=== PATIENT | female | born 1995 | race Caucasian/White ===

== ENCOUNTER → 2024-01-19 17:32 | Outpatient (CLI) | payer OTHER, SELFPAY | PROVIDERS: Referring Provider Internal Medicine; Visit Provider Internal Medicine | DX: Z23 Encounter for immunization (principal) | CPT/HCPCS: 90471; 90656 ==

== ENCOUNTER → 2024-09-15 16:46 | Outpatient (CLI) | payer OTHER, SELFPAY ==
[2024-09-15 17:43] LABS: Add Manual Diff / Slide Review NO; Basophils Absolute Auto 0 /uL (0-100); Basophils Percent Auto 0.4 % (0-2); Eosinophils Absolute Auto 200 /uL (0-450); Eosinophils Percent Auto 2.2 % (2-4); Hematocrit 40.1 % (36-46); Hemoglobin 13.4 g/dL (12.0-16.0); Lymphocytes Absolute Auto 2400 /uL (1100-4500); Lymphocytes Percent Auto 33.8 % (25-40); Mean Corpuscular HGB Conc 33.4 % (30-36); Mean Corpuscular Hemoglobin 29.4 PG (26-34); Mean Corpuscular Volume 88.2 fL (80-100); Monocytes Absolute Auto 400 /uL (0-900); Monocytes Percent Auto 6.3 % (3-14); Neutrophils Absolute Auto 4100 /uL (1500-7000); Neutrophils Percent Auto 57.3 % (50-75); Platelet Count 265 X10^3/uL (150-400); Red Blood Cell Count 4.55 X10^6/uL (4.0-5.2); Red Cell Distribution Width 12.8 % (11.6-14.8); White Blood Cell Count 7.1 X10^3/uL (4.5-11.0)
[2024-09-15 17:48] LABS: Hemoglobin A1C% w Est Avg Glu 5.1 % (4.0-6.0)
[2024-09-15 17:57] LABS: HEMOLYSIS < 15 (0-50); Iron 70 ug/dL (37-170)
[2024-09-15 18:09] LABS: Erythrocyte Sedimentation Rate 11 MM/HR (0-20)
[2024-09-15 18:10] LABS: Percent Iron Saturation 17 % (15-50); Total Iron Binding Capacity 413 ug/dL (265-497); Transferrin 344 mg/dL (206-381)
[2024-09-15 18:12] LABS: Rheumatoid Factor < 8.6 IU/mL (<12.0)
[2024-09-15 18:33] LABS: Ferritin 15 ng/mL (6-137)
[2024-09-15 18:49] LABS: Vitamin B12 667 pg/mL (239-931)
[2024-09-18 03:08] LABS: ANA Screen, IFA Positive (.)
[2024-09-18 11:09] LABS: CCP Antibodies IgG/IgA 8 units (0-19)
== END ==
PROVIDERS: Referring Provider Physician Assistant; Visit Provider Physician Assistant
DX: G62.9 Polyneuropathy, unspecified (principal)
CPT/HCPCS: 36415; 82607; 82728; 83036; 83540; 83550; 85025; 85651; 86038; 86200; 86430

== ENCOUNTER → 2024-10-06 12:07 | Outpatient (CLI) | payer OTHER, SELFPAY | PROVIDERS: Visit Provider Nurse Practitioner Family | DX: S01.501A Unspecified open wound of lip, initial encounter (principal); X58.XXXA Exposure to other specified factors, initial encounter | CPT/HCPCS: 87070; 87077; 87147; 87205 ==